=== PATIENT | female | born 1940 | race Caucasian/White ===

== ENCOUNTER 2019-04-06 09:06 | Emergency (ER) | payer OTHER ==
[~2019-04-06] VITALS: Ht 160 cm; Wt 99.8 kg
[~2019-04-06 09:06] MED LIST: AMARYL PO; ATENOLOL25 MG PO; DIOVAN HCT 160-1 TA1; METFORMIN HCL500 MG PO; NEURONTIN300 MG PO; ZANTAC150 M3
[2019-04-06] MEDS ORDERED: JANUMET 50-1,01 EACH (09:17)
== END 2019-04-06 13:32 | disposition home or self-care (01) ==
LOC: ER 09:06
DX: G89.11 Acute pain due to trauma (principal); M25.551 Pain in right hip

== ENCOUNTER 2019-11-14 12:48 | Emergency (ER) | payer OTHER ==
[~2019-11-14] VITALS: Ht 160 cm; Wt 99.8 kg
[~2019-11-14 12:48] MED LIST changes: +JANUMET 50-1,01 EACH
[2019-11-14] MEDS ORDERED: TOPROL XL25 M1 PO (13:39)
== END 2019-11-14 14:30 | disposition home or self-care (01) ==
LOC: ER 12:48
DX: K08.89 Other specified disorders of teeth and supporting structures (principal)

== ENCOUNTER 2019-12-25 09:03 | Inpatient (IN) | payer OTHER ==
[~2019-12-25] VITALS: Ht 91.4 cm; Wt 5.0 kg
[~2019-12-25 09:03] MED LIST changes: +TOPROL XL25 M1 PO
[2019-12-26] MEDS ORDERED: PROPRANOLOL HCL60 M1 (08:39)
[2019-12-26] MEDS ORDERED: LOPRESSOR25 MG (08:39)
[2019-12-26] MEDS ORDERED: DULCOLAX5 MG (08:40)
[2019-12-26] MEDS ORDERED: GABAPENTIN300 M2 (08:40)
[2019-12-26] MEDS ORDERED: DICLOFENAC POTA50 MG (08:40)
[2019-12-26] MEDS ORDERED: GLIMEPIRIDE1 MG (08:41)
== END 2020-01-01 18:19 | disposition home or self-care (01) | DRG 444 ==
LOC: ER 09:03 → MEDI 19:14
PROVIDERS: ADMIT Internal Medicine
PROC: BW21Y0Z Computerized Tomography (CT Scan) of Abdomen and Pelvis using Other Contrast, Unenhanced and Enhanced (ICD-10-PCS; principal; 2019-12-25)
PROC: BW40ZZZ Ultrasonography of Abdomen (ICD-10-PCS; 2019-12-25)
DX: K80.80 Other cholelithiasis without obstruction (principal); A41.1 Sepsis due to other specified staphylococcus; R65.20 Severe sepsis without septic shock; K57.32 Diverticulitis of large intestine without perforation or abscess without bleeding; K92.1 Melena; K59.09 Other constipation; E66.09 Other obesity due to excess calories; E11.65 Type 2 diabetes mellitus with hyperglycemia; E11.40 Type 2 diabetes mellitus with diabetic neuropathy, unspecified; Z79.4 Long term (current) use of insulin

== ENCOUNTER 2020-02-17 13:23 | Emergency (ER) | payer OTHER ==
[~2020-02-17] VITALS: Ht 160 cm; Wt 99.8 kg
[~2020-02-17 13:23] MED LIST changes: +DICLOFENAC POTA50 MG; +DULCOLAX5 MG; +GABAPENTIN300 M2; +GLIMEPIRIDE1 MG; +LOPRESSOR25 MG; +PROPRANOLOL HCL60 M1
== END 2020-02-17 15:27 | disposition home or self-care (01) ==
LOC: ER 13:23
DX: K58.8 Other irritable bowel syndrome (principal)

== ENCOUNTER 2020-03-11 08:06 | Day surgery (SDC) | payer OTHER | END 2020-03-11 14:44 | disposition home or self-care (01) | LOC: AMB-ENDOS 08:06 | DX: K57.32 Diverticulitis of large intestine without perforation or abscess without bleeding (principal); K64.0 First degree hemorrhoids ==

== ENCOUNTER 2020-08-11 09:31 | Emergency (ER) | payer OTHER ==
[~2020-08-11] VITALS: Ht 160 cm; Wt 100.7 kg
[2020-08-11] MEDS ORDERED: DICLOFENAC SODI75 MG PO (10:26)
== END 2020-08-11 11:07 | disposition home or self-care (01) ==
LOC: ER 09:31
DX: R07.89 Other chest pain (principal); M94.0 Chondrocostal junction syndrome [Tietze]

== ENCOUNTER 2020-10-27 10:39 | Emergency (ER) | payer OTHER ==
[~2020-10-27] VITALS: Ht 160 cm; Wt 99.8 kg
[~2020-10-27 10:39] MED LIST changes: +DICLOFENAC SODI75 MG PO
== END 2020-10-27 12:46 | disposition home or self-care (01) ==
LOC: ER 10:39
DX: L50.8 Other urticaria (principal)